=== PATIENT | female | born 1995 | race Caucasian/White ===

== ENCOUNTER 2022-08-01 19:43 | Emergency (ER) | payer MEDICAID ==
[~2022-08-01] VITALS: Ht 172.7 cm; Wt 73.4 kg
[2022-08-01] MEDS ORDERED: ACETAMINOPHEN 325MG TABLET PO STA (20:49)
[2022-08-01] MEDS ORDERED: ONDANSETRON 4MG ODT PO STA (20:49)
[2022-08-01 20:52] LABS: EOSINOPHILS % 0.1 % (0.0-5.0); HEMOGLOBIN. 10.5 g/dL (12.0-16.0); LYMPHOCYTES % 7.9 % (20.0-50.0); MEAN CORPUSCULAR HEMOGLOBIN 23.1 pg (28.0-32.0); MEAN CORPUSCULAR VOLUME 72.4 fL (81.0-99.0); MEAN PLATELET VOLUME 10.8 fl (7.4-10.4); MONOCYTES % 8.4 % (2.0-8.0); NEUTROPHILS % 82.6 % (40.0-76.0); PLATELET 203 x1000/uL (130-400); RED BLOOD CELL COUNT 4.56 mill/uL (4.2-5.4)
[2022-08-01 21:00] LABS: CHLORIDE 105 mEq/L (98-107)
[2022-08-01 21:25] LABS: CLARITY URINE CLOUDY (CLEAR); COLOR URINE YELLOW (YELLOW); KETONES URINE TRACE (NEGATIVE); LEUKOCYTE ESTERASE URINE 1+ (NEGATIVE); NITRITE URINE NEGATIVE (NEGATIVE); OCCULT BLOOD URINE NEGATIVE (NEGATIVE); PROTEIN URINE 1+ (NEGATIVE); SPECIFIC GRAVITY URINE 1.017 (1.005-1.030)
[2022-08-01 23:03] VITALS: BP 98/62
[2022-08-01] MEDS ORDERED: SODIUM CHLORIDE 0.9% 1,000 ML IV ONE (23:15)
[2022-08-01] MEDS ORDERED: CEFTRIAXONE 1GM PREMIX 50 ML IV ONE (23:30)
[2022-08-01] MEDS ORDERED: IBUP-2029 MT (23:40)
[2022-08-01] MEDS ORDERED: CEPH500C2 MT (23:40)
== END 2022-08-01 23:58 | disposition home or self-care (01) ==
LOC: ER 19:43
DX: J06.9 Acute upper respiratory infection, unspecified (principal); N39.0 Urinary tract infection, site not specified
CPT/HCPCS: 36415; 71045; 80053; 81003; 81025; 85025; 96360; 99284; Q0162